=== PATIENT | female | born 1975 | race Caucasian/White ===

== ENCOUNTER 2025-02-17 13:21 | Emergency (ER) | payer BC, SELFPAY ==
[2025-02-17 13:26] VITALS: BP 132/81
[2025-02-17 14:48] VITALS: BMI 36.2
--- NOTE | 2025-02-17 14:50 | EDRN ---
Pt states she went to see her primary PCP as feeling 'like crap.' who sent her here to r/o cardiac. Pt states she has had chest pain in substernal area since last Wed and radiated to R shoulder, down R arm and into R jaw (happened x4 on Mon). Pt
states has had it in past and PCP ordered a stress test for it, negative. Since wed pressure w/ nausea. constant. Pain rated 2-3/10 but intermittently increases to 6-7/10.
[2025-02-17 14:56] VITALS: BP 124/82
[2025-02-17 15:00] VITALS: BP 120/79
--- NOTE | 2025-02-17 15:02 | ED.GENMED ---
History of Present Illness
General
Chief Complaint: Chest Pain
Source: patient
Time Seen by Provider: 02/17/25 14:46
History of Present Illness
History of Present Illness:
49-year-old female presents to the emergency room complaining of pain in her chest and upper abdomen that radiates to her back. Pain began a few days ago. Was quite severe at onset. It has never gone away. There are times when the pain becomes
severe again. She denies associated diaphoresis, nausea or vomiting. She has no appetite. Patient takes omeprazole and famotidine for GERD. She denies any fever or chills. Nothing really seems to make the pain worse.
Phy Exam
Physical Exam
Physical Exam:
General: Awake, Alert, Oriented X3. No acute distress.
Vitals: unremarkable
Head: Atraumatic
Eyes: Pupils equal, EOMI
Throat: Airway intact, no exudates
Neck: Trachea midline
Lungs: Clear and equal b/l
Heart: Regular rate, no murmurs
Abd: Soft, no reproducible abdominal tenderness to palpation, No pulsatile mass
Neuro: Nonfocal
Skin: Warm, dry, no rash
Extremities: pulses equal b/l, no edema
Scores
Heart Score for Chest Pain Patients
STEMI patient?: No
History: Slightly or Non-Suspicious
ECG: Nonspecific Repolarization
Age: >45 - <65 years
Risk Factors: 1 or 2 Risk Factors
Troponin: </= Normal Limit
Heart Score for Chest Pain Patients: 3
Heart Score Risk: 2.5% MACE over next 6 weeks
Course
Orders/Labs/Results
Orders:
Orders
02/17/25 13:22
Electrocardiogram (*1) Urgent
Reason for Study: Chest Pain
EKG- Treatment ONCE
02/17/25 14:56
Cardiac Monitoring- Treatment ONCE
IV Insert/Care/Rem.- Treatment PRN
02/17/25 15:02
CT Chest Angio W/wo Iv Contras Urgent
Comment:
Reason For Exam: chest pain radiating to back
Complete Blood Count/With Diff Urgent
Comprehensive Metabolic Panel Urgent
Lipase Urgent
Troponin I Urgent
Abnormal Lab Results
02/17/25
15:02
WBC 4.7 L 10^3/uL
(4.8-10.8)
Hct 36.5 L %
(37.0-47.0)
Neutrophils % 37.8 L %
(42.2-75.2)
Lymphocytes % 51.5 H %
(20.5-51.1)
AST 61 H U/L
(14-36)
ALT 69 H U/L
(0-35)
02/17/25 15:02
02/17/25 15:02
Vital Signs
Initial and Last Documented VS:
Initial Vital Signs
Temp Pulse Resp BP Pulse Ox
98.3 F 80 20 132/81 99
02/17/25 13:26 02/17/25 13:26 02/17/25 13:26 02/17/25 13:26 02/17/25 13:26
Last Documented Vital Signs
Temp Pulse Resp BP Pulse Ox
98.3 F 73 14 114/76 99
02/17/25 13:26 02/17/25 17:30 02/17/25 17:30 02/17/25 17:20 02/17/25 17:30
MDM/Problems Addressed
Differential Diagnosis Includes:
ACS, dissection, pancreatitis, gastritis,
MDM/Problems Addressed:
CT chest unremarkable except for soft tissue density which radiology believes is thymic tissue but will need further evaluation. I did discuss this with the patient. She says she has not had any chest imaging. She understands that she needs to
follow-up with her primary care doctor to have this evaluated with an outpatient MRI. Labs are reassuring. No evidence for an unstable process. Patient's AST and ALT are mildly elevated. Discussed this with the patient. She states that this has
been the case previously and was thought to be related to fatty liver. Given she has no reproducible pain in the right upper quadrant I do not believe we need to perform any imaging for cholecystitis. I suspect the patient's discomfort is
musculoskeletal in nature. Patient stable for discharge home and follow with primary care provider.
*Radiology
Radiology exam reviewed: radiology read reviewed
*Pulse Oximetry
Patient hypoxic: no
*EKG
Interpreted by ED Provider?: Yes
Comparison EKG: no comparison EKG present
Heart Rate: 75
Rate: normal
Rhythm: sinus
Interval: first degree heart block
QRS Pattern: low voltage and wide non-specific
Ischemia: non-specific ST changes
*Mechanical Artist Interpretation
Rate: normal
Interpretation: normal
Rhythm: sinus
*Critical Care Note
Total Time (30-74mins, 75-104mins- exclusive of procedures): Not Applicable
ED Attending Note
-
Portions of this chart may have been created with voice recognition software.� Occasional wrong word or��sound alike� substitutions may have occurred due to the inherent limitations of voice recognition software.
Discharge Plan
Departure
Patient Disposition: Home (Routine Discharge)
Date of Disposition: 02/17/25
Time of Disposition: 17:22
Patient with high blood pressure during this ER visit?: No
Condition: Good
Discharge Problem:
Chest pain, GERD (gastroesophageal reflux disease), Esophageal spasm
Instructions: Acid reflux and GERD in adults, Chest Pain PCP Follow Up
Prescriptions:
New
dicyclomine 20 mg tablet
20 mg PO QID PRN (Reason: abd/chest spasm/pain) Qty: 20 0RF
Referrals:
Adelaide Jackson CRNP [Family Provider] -
Geeta Stiles MD [Active] -
Interventions
Interventions:
*Risk Screen - Suicide Last Done: 02/17/25 14:49
*General Assessment Last Done: 02/17/25 14:48
*Neglect/Abuse Screening Last Done: 02/17/25 14:49
*ED- Fall Risk Assessment Last Done: 02/17/25 14:48
*ED COVID-19 Vaccine History Last Done: 02/17/25 14:48
*Nursing Disposition Last Done: 02/17/25 17:46
ED- Cardiac Assessment Last Done: 02/17/25 15:05
Discharge Date and Time
Discharge Date/Time: 02/17/25 17:46
Print Language: GERMAN
[2025-02-17 15:31] LABS: ALT (SGPT) 69 U/L (0-35); AST (SGOT) 61 U/L (14-36); Albumin 4.3 g/dl (3.5-5.0); Alkaline Phosphatase 66 U/L (38-126); Blood Urea Nitrogen 10 mg/dl (7-17); Carbon Dioxide 30 mmol/L (22-30); Chloride 107 mmol/L (98-107); Estimated Creatinine Clearance 107 ml/min; Glucose 93 mg/dl (70-99); Potassium 3.6 mmol/L (3.5-5.1); Sodium 145 mmol/L (135-145); Total Bilirubin 0.5 mg/dl (0.2-1.3); Total Protein 6.6 g/dl (6.3-8.2); eGFR > 60.00
[2025-02-17 15:43] LABS: Troponin I < 0.012 ng/ml
[2025-02-17 15:45] LABS: % Basophils 0.2 % (0-2); % Eosinophils 2.4 % (0-6); % Immature Granulocytes 0.2 % (0-0.5); % Lymphocytes 51.5 % (20.5-51.1); % Monocytes 7.9 % (1.7-9.3); % Neutrophils 37.8 % (42.2-75.2); Absolute Eosinophils 0.1 10^3/uL (0-0.7); Absolute Lymphocytes 2.4 10^3/uL (1.2-3.4); Absolute Monocytes 0.4 10^3/uL (0.1-0.6); Absolute Neutrophils 1.8 10^3/uL (1.4-6.5); Hematocrit 36.5 % (37.0-47.0); Hemoglobin 12.2 g/dL (12.0-16.0); Mean Corp Hgb Conc. 33.4 g/dL (33.0-37.0); Mean Corpuscular Hgb 28.4 pg (27.0-31.0); Mean Corpuscular Volume 84.9 fL (81.0-99.0); Mean Platelet Volume 8.5 fL (7.4-10.4); Nucleated Red Blood Cells % 0 %; Platelet Count 224 10^3/uL (130-400); Red Cell Dist. Width 13.2 % (11.5-14.5); White Blood Cell Count 4.7 10^3/uL (4.8-10.8)
[2025-02-17 16:00] VITALS: BP 111/71
[2025-02-17 16:04] LABS: Lipase 85 U/L (23-300)
--- NOTE | 2025-02-17 17:19 | EDRN ---
Dr. Burkett in room w/ pt at this time.
[2025-02-17 17:20] VITALS: BP 114/76
== END 2025-02-17 17:46 | disposition home or self-care (01) ==
LOC: EMR 13:21
PROVIDERS: EMERGENCY PHYSICIAN Emergency Medicine; FAMILY PHYSICIAN Nurse Practitioner Family
DX: R07.9 Chest pain, unspecified (principal); K21.9 Gastro-esophageal reflux disease without esophagitis; K22.4 Dyskinesia of esophagus
CPT/HCPCS: 99284; 71275; 80053; 83690; 84484; 85025; 93005; Q9967